=== PATIENT | male | born 1960 | race Caucasian/White ===

== ENCOUNTER → 2016-11-04 | Outpatient (CLI) | payer OTHER ==
[~2016-11-04] VITALS: Ht 195.6 cm; Wt 126.1 kg
[~2016-11-04] MED LIST: ALTA1CAP2 PO; ASPI81TA13 PO; METF500T PO; NS 1,000 ML IV SCH; PROPOFOL 200 MG/20 ML VIAL As Ordered ONE
--- NOTE | 2016-11-04 08:31 | ROOR ---
Patient Name: Tae Juares Procedure Date: 11/04/2016 7:52 AM Date of : 1960 Age: 56 Room: [facility] Gender: Male Note Status: Finalized Procedure: Colonoscopy Indications: Screening for colorectal malignant neoplasm Providers: Srinivas CARTER MD Referring MD: Ramonita Melgar NP Requesting Provider: Medicines: Monitored Anesthesia Care Complications: No immediate complications. Procedure: Pre-Anesthesia Assessment: - The heart rate, respiratory rate, oxygen saturations, blood pressure, adequacy of pulmonary ventilation, and response to care were monitored throughout the procedure. The Colonoscope was introduced through the anus and advanced to the cecum, identified by appendiceal orifice and ileocecal valve. The colonoscopy was performed without difficulty. The patient tolerated the procedure well. The quality of the bowel preparation was good. Findings: The perianal and digital rectal examinations were normal. Three flat and sessile polyps were found in the hepatic flexure, ascending colon and cecum. The polyps were 5 to 8 mm in size. These polyps were removed with a piecemeal technique using a cold snare. Resection and retrieval were complete. A 4 mm polyp was found in the sigmoid colon. The polyp was sessile. The polyp was removed with a cold snare. Resection and retrieval were complete. The exam was otherwise without abnormality on direct and retroflexion views. Impression: - Three 5 to 8 mm polyps at the hepatic flexure, in the ascending colon and in the cecum, removed piecemeal using a cold snare. Resected and retrieved. - One 4 mm polyp in the sigmoid colon, removed with a cold snare. Resected and retrieved. - The examination was otherwise normal on direct and retroflexion views. Recommendation: - Repeat colonoscopy in 3 years for surveillance. Srinivas Carter MD Srinivas CARTER MD 11/04/2016 8:30:37 AM This report has been signed electronically. Number of Addenda: 0 Note Initiated On: 11/04/2016 7:52 AM Estimated Blood Loss: Estimated blood loss: none.
[2016-11-04 08:50] VITALS: BP 133/96
== END ==
LOC: M OPP 06:26
PROVIDERS: ATTEND Internal Medicine Gastroenterology
DX: Z12.11 Encounter for screening for malignant neoplasm of colon (principal); D12.3 Benign neoplasm of transverse colon; D12.2 Benign neoplasm of ascending colon; D12.0 Benign neoplasm of cecum; D12.5 Benign neoplasm of sigmoid colon; E11.9 Type 2 diabetes mellitus without complications; Z79.899 Other long term (current) drug therapy; Z79.82 Long term (current) use of aspirin; Z79.84 Long term (current) use of oral hypoglycemic drugs

== ENCOUNTER → 2016-12-11 | Outpatient (REF) | payer OTHER ==
[~2016-12-11] MED LIST changes: -NS 1,000 ML IV SCH; -PROPOFOL 200 MG/20 ML VIAL As Ordered ONE
[2016-12-11 18:44] LABS: ALBUMIN/GLOBULIN RATIO 1.29 (1.00-1.93); ALKALINE PHOSPHATASE 84 U/L (45-117); ALT/SGPT 58 U/L (12-78); ANION GAP 9 MEQ/L (8-16); AST/SGOT 24 U/L (15-37); BILIRUBIN,TOTAL 0.8 MG/DL (0.2-1.0); BLOOD UREA NITROGEN 14 MG/DL (7-18); CALCIUM LEVEL 8.6 MG/DL (8.5-10.1); CARBON DIOXIDE LEVEL 27 MEQ/L (21-32); CHLORIDE LEVEL 102 MEQ/L (98-107); CHOLESTEROL LEVEL 189 MG/DL (<200); CREATININE FOR GFR 1.01 MG/DL (0.70-1.30); GLOMERULAR FILTRATION RATE > 60.0 (>56); GLUCOSE, FASTING 141 MG/DL (70-105); POTASSIUM SERUM 4.2 MEQ/L (3.5-5.1); SODIUM LEVEL 138 MEQ/L (136-145); TOTAL PROTEIN 7.1 GM/DL (6.4-8.2); TRIGLYCERIDES LEVEL 283 MG/DL (<150)
== END ==
LOC: M SFHCPLAZ 16:16
PROVIDERS: ATTEND Nurse Practitioner Adult Health
DX: E11.9 Type 2 diabetes mellitus without complications (principal); E78.1 Pure hyperglyceridemia; R06.83 Snoring

== ENCOUNTER 2017-01-01 07:11 | Emergency (ER) | payer OTHER ==
[~2017-01-01] VITALS: Ht 198.1 cm; Wt 123.8 kg
[2017-01-01] MEDS ORDERED: RAMI25CA PO (07:20)
[2017-01-01] MEDS ORDERED: GLIM4TAB PO (07:20)
[2017-01-01] MEDS: IBUPROFEN 800 MG TAB PO ONE (08:00)
[2017-01-01] MEDS: NORCO, ANEXSIA 5/325MG TABLET (HYDROcodone/ACETAMINOPHEN) PO ONE (08:01)
[2017-01-01] MEDS: METHOCARBAMOL 500 MG TAB PO ONE (08:01)
[2017-01-01] MEDS ORDERED: NORCOTAB PO ×2 (08:23→08:26)
[2017-01-01] MEDS ORDERED: IBUP600T26 PO (08:23)
[2017-01-01] MEDS ORDERED: ROBA500T PO (08:23)
[2017-01-01 08:49] VITALS: BP 131/82
== END 2017-01-01 08:52 | disposition home or self-care (01) ==
LOC: M ED 07:47
DX: S39.012A Strain of muscle, fascia and tendon of lower back, initial encounter (principal); X58.XXXA Exposure to other specified factors, initial encounter; Y92.89 Other specified places as the place of occurrence of the external cause; Y93.89 Activity, other specified; Y99.8 Other external cause status; I10 Essential (primary) hypertension; E11.9 Type 2 diabetes mellitus without complications; Z79.84 Long term (current) use of oral hypoglycemic drugs; Z79.82 Long term (current) use of aspirin; Z79.899 Other long term (current) drug therapy; E78.00 Pure hypercholesterolemia, unspecified

== ENCOUNTER → 2017-02-13 | Outpatient (CLI) | payer OTHER ==
[~2017-02-13] MED LIST changes: +GLIM4TAB PO; +IBUP600T26 PO; +NORCOTAB PO; +RAMI25CA PO; +ROBA500T PO
--- NOTE | 2017-02-17 09:31 | SLEEPHOME ---
DATE OF PROCEDURE: 02/13/2017 ORDERED BY: Rosita Miller. INTERPRETATION: Diagnostic home sleep testing was performed due to concern for the obstructive sleep apnea syndrome in this patient with a history of excessive somnolence. For testing, a NOX-T3 respiratory monitoring device was used. Continuous record was made of pulse, oxygen saturation, air flow, chest and abdominal strain, and body position. 10 hours and 59 minutes of data were reviewed. Of these, only 4 hours and 4 minutes of time was marked as time in bed. During the interval marked time in bed, there were 38 respiratory events identified of 10 seconds in duration or greater for a respiratory event index of 9.3. The events were primarily obstructive. Baseline pulse rate 75. Pulse rate ranged 61 to 102. Baseline saturation 93%. With respiratory events, saturations fell to 87%. Testing was performed in both the supine and non-supine positions. IMPRESSION: Abnormal home sleep testing with repetitive respiratory events and oxygen desaturations to 87% with a respiratory event index of 9.3 is consistent with the obstructive sleep apnea syndrome. RECOMMENDATION: The patient should be encouraged to undergo formal sleep evaluation and in laboratory pressure titration.
== END ==
LOC: M SLEEP HO 13:05
PROVIDERS: ATTEND Nurse Practitioner Adult Health
DX: G47.30 Sleep apnea, unspecified (principal)

== ENCOUNTER 2017-03-01 14:16 | Emergency (ER) | payer OTHER ==
[~2017-03-01] VITALS: Ht 195.6 cm; Wt 126.1 kg
[2017-03-01] MEDS ORDERED: ACETAMINOPHEN 325 MG TAB PO ONE (14:45)
[2017-03-01] MEDS ORDERED: BACITRACIN OINT 30GM TOP ONE (15:00)
[2017-03-01 15:03] VITALS: BP 143/95
[2017-03-01] MEDS ORDERED: TYLE325C PO (15:09)
--- NOTE | 2017-03-01 15:09 | REP ---
LEFT TIBIA/FIBULA, FOUR VIEWS: HISTORY: Injury. COMPARISON: 04/05/2016 There is no acute fracture or dislocation. There is minimal narrowing of the knee joint space. IMPRESSION: There is no acute fracture or dislocation. Signed by Felton Valentin MD 03/01/2017 04:03 P
--- NOTE | 2017-03-01 15:11 | REP ---
LEFT FINGERS, FOUR VIEWS: HISTORY: Trauma. There is no acute fracture or dislocation. A small ossified density is present anterior to the distal interphalangeal joint space of the 4th digit. This represents ligamentous or tendon calcification or possibly an old avulsion fracture fragment. A subchondral cyst is present in the base of the 4th distal phalange. IMPRESSION: There is no acute fracture or dislocation. Signed by Felton Valentin MD 03/01/2017 04:00 P
--- NOTE | 2017-03-01 16:43 | ECGEPIP ---
Stationary ECG Study [facility] Test Date: 2017-03-01 Pat Name: RIVAS RANDLE Department: Room: - Gender: M Cmm Programmer: LUCIA : 1960 Requested By: CLARITZA Lemus PA-C Order Number: [id number] Reading MD: Christina Garay Measurements Intervals [place] Rate: 105 P: 37 DC: 169 QRS: 21 QRSD: 95 T: 3 QT: 319 QTc: 422 Interpretive Statements SINUS TACHYCARDIA ABNORMAL RHYTHM ECG SIMILAR 11/05/15 Electronically Signed On 03-01-2017 16:42:54 EDT by Christina Garay
== END 2017-03-01 15:25 | disposition home or self-care (01) ==
LOC: M ED 14:47
DX: S62.601A Fracture of unspecified phalanx of left index finger, initial encounter for closed fracture (principal); S80.12XA Contusion of left lower leg, initial encounter; W21.07XA Struck by softball, initial encounter; Y92.9 Unspecified place or not applicable; Y93.64 Activity, baseball; Y99.9 Unspecified external cause status; E11.9 Type 2 diabetes mellitus without complications; I10 Essential (primary) hypertension; R00.0 Tachycardia, unspecified; R94.31 Abnormal electrocardiogram [ECG] [EKG]; Z79.82 Long term (current) use of aspirin; Z79.84 Long term (current) use of oral hypoglycemic drugs; Z79.899 Other long term (current) drug therapy

== ENCOUNTER 2017-08-13 18:22 | Emergency (ER) | payer OTHER ==
[~2017-08-13] VITALS: Ht 195.6 cm; Wt 124.5 kg
[~2017-08-13 18:22] MED LIST changes: -ASPI81TA13 PO; +ASPI81TA24 PO; +IBUP-1022 PO; -IBUP600T26 PO; -METF500T PO; +METF500T13 PO; +TYLE325C PO
[2017-08-13] MEDS ORDERED: METF10004 PO (18:31)
[2017-08-13] MEDS ORDERED: CEFD1CAP8 PO (22:12)
[2017-08-13] MEDS ORDERED: CEFDINIR 300 MG CAP (OMNICEF) PO ONE (22:15)
[2017-08-13 22:33] VITALS: BP 127/82
== END 2017-08-13 22:49 | disposition home or self-care (01) ==
LOC: M ED 18:22
DX: J20.9 Acute bronchitis, unspecified (principal); J02.9 Acute pharyngitis, unspecified; E11.9 Type 2 diabetes mellitus without complications; I10 Essential (primary) hypertension; Z79.82 Long term (current) use of aspirin; Z79.84 Long term (current) use of oral hypoglycemic drugs; Z79.899 Other long term (current) drug therapy

== ENCOUNTER → 2018-03-22 | Outpatient (CLI) | payer OTHER | LOC: M SLEEP HO 15:25 | DX: G47.33 Obstructive sleep apnea (adult) (pediatric) (principal) | CPT/HCPCS: G0399 ==

== ENCOUNTER → 2018-06-22 | Outpatient (REF) | payer OTHER ==
[2018-06-22 12:17] LABS: HEMATOCRIT 45.4 % (42.0-52.0); HEMOGLOBIN 15.8 g/dl (13.5-17.5); MEAN CORPUSCULAR HGB CONC 34.8 g/dl (32.0-36.5); MEAN CORPUSCULAR VOLUME 86.1 fl (80.0-96.0); PLATELET COUNT, AUTOMATED 257 10^3/uL (150-450); RED BLOOD COUNT 5.27 10^6/uL (4.30-6.10); RED CELL DISTRIBUTION WIDTH 11.9 % (11.5-14.5); WHITE BLOOD COUNT 8.3 10^3/uL (4.0-10.0)
[2018-06-22 13:32] LABS: ALBUMIN/GLOBULIN RATIO 1.38 (1.00-1.93); ALKALINE PHOSPHATASE 102 U/L (45-117); ALT/SGPT 53 U/L (12-78); ANION GAP 10 MEQ/L (8-16); AST/SGOT 18 U/L (7-37); BILIRUBIN,TOTAL 0.5 MG/DL (0.2-1.0); BLOOD UREA NITROGEN 14 MG/DL (7-18); CALCIUM LEVEL 9.4 MG/DL (8.5-10.1); CARBON DIOXIDE LEVEL 28 MEQ/L (21-32); CHLORIDE LEVEL 101 MEQ/L (98-107); CHOLESTEROL LEVEL 144 MG/DL (<200); CHOLESTEROL RISK RATIO 5.333 (<5); CREATININE FOR GFR 1.07 MG/DL (0.70-1.30); GLOMERULAR FILTRATION RATE > 60.0 (>56); GLUCOSE, FASTING 263 MG/DL (70-100); HDL CHOLESTEROL 27 MG/DL (>40); LDL CHOLESTEROL 54 MG/DL (<100); NON-HDL-C 117 MG/DL; POTASSIUM SERUM 4.6 MEQ/L (3.5-5.1); SODIUM LEVEL 139 MEQ/L (136-145); TOTAL PROTEIN 6.9 GM/DL (6.4-8.2); TRIGLYCERIDES LEVEL 314 MG/DL (<150)
[2018-06-22 13:52] LABS: MALB URINE SIEMENS 8.4 MG/L
[2018-06-22 13:57] LABS: MAU/CREAT RATIO 8.6 MCG/MG (0.0-30.0)
[2018-06-22 16:03] LABS: ESTIMATED AVERAGE GLUCOSE 229 MG/DL (60-110); HEMOGLOBIN A1c 9.6 %
== END ==
LOC: M SFHCPLAZ 08:51
DX: E11.9 Type 2 diabetes mellitus without complications (principal); E78.1 Pure hyperglyceridemia; R53.83 Other fatigue

== ENCOUNTER → 2018-11-10 | Outpatient (REF) | payer OTHER ==
[~2018-11-10] MED LIST changes: +CEFD1CAP8 PO; +METF10004 PO; +RAMI1CAP22 PO; -RAMI25CA PO
[2018-11-10 18:22] LABS: HEMATOCRIT 47.4 % (42.0-52.0); HEMOGLOBIN 16.1 g/dl (13.5-17.5); MEAN CORPUSCULAR VOLUME 88.4 fl (80.0-96.0); PLATELET COUNT, AUTOMATED 238 10^3/uL (150-450); RED BLOOD COUNT 5.36 10^6/uL (4.30-6.10); WHITE BLOOD COUNT 9.8 10^3/uL (4.0-10.0)
[2018-11-10 18:33] LABS: ALBUMIN 3.9 GM/DL (3.2-5.2); ALT/SGPT 45 U/L (12-78); BILIRUBIN,TOTAL 0.4 MG/DL (0.2-1.0); BLOOD UREA NITROGEN 14 MG/DL (7-18); CALCIUM LEVEL 8.8 MG/DL (8.5-10.1); CARBON DIOXIDE LEVEL 29 MEQ/L (21-32); CHLORIDE LEVEL 104 MEQ/L (98-107); CHOLESTEROL LEVEL 132 MG/DL (<200); CREATININE FOR GFR 1.15 MG/DL (0.70-1.30); GLOMERULAR FILTRATION RATE > 60.0 (>56); GLUCOSE, FASTING 145 MG/DL (70-100); HDL CHOLESTEROL 25 MG/DL (>40); LDL CHOLESTEROL 38 MG/DL (<100); NON-HDL-C 107 MG/DL; POTASSIUM SERUM 4.2 MEQ/L (3.5-5.1); SODIUM LEVEL 140 MEQ/L (136-145); TOTAL PROTEIN 6.8 GM/DL (6.4-8.2); TRIGLYCERIDES LEVEL 344 MG/DL (<150)
[2018-11-10 18:53] LABS: CREATININE, URINE 68.1 MG/DL; MALB URINE SIEMENS 6.9 MG/L; MAU/CREAT RATIO 10.1 MCG/MG (0.0-30.0)
[2018-11-10 20:09] LABS: HEMOGLOBIN A1c 9.2 %
== END ==
LOC: M SFHCPLAZ 14:55
PROVIDERS: ATTEND Nurse Practitioner Adult Health
DX: E78.1 Pure hyperglyceridemia (principal); R53.83 Other fatigue; E11.9 Type 2 diabetes mellitus without complications

== ENCOUNTER → 2019-02-10 | Outpatient (REF) | payer OTHER ==
[~2019-02-10] MED LIST changes: +HYDR-3715 PO; -NORCOTAB PO
[2019-02-10 17:41] LABS: ALBUMIN 3.9 GM/DL (3.2-5.2); ALT/SGPT 34 U/L (12-78); BILIRUBIN,TOTAL 0.5 MG/DL (0.2-1.0); BLOOD UREA NITROGEN 16 MG/DL (7-18); CALCIUM LEVEL 9.3 MG/DL (8.5-10.1); CARBON DIOXIDE LEVEL 27 MEQ/L (21-32); CHLORIDE LEVEL 103 MEQ/L (98-107); CREATININE FOR GFR 1.22 MG/DL (0.70-1.30); GLOMERULAR FILTRATION RATE > 60.0 (>56); GLUCOSE, FASTING 299 MG/DL (70-100); POTASSIUM SERUM 4.3 MEQ/L (3.5-5.1); SODIUM LEVEL 136 MEQ/L (136-145); TOTAL PROTEIN 6.8 GM/DL (6.4-8.2)
[2019-02-10 19:17] LABS: HEMOGLOBIN A1c 9.1 %
== END ==
LOC: M SFHCPLAZ 15:51
PROVIDERS: ATTEND Nurse Practitioner Adult Health
DX: R53.83 Other fatigue (principal); E11.9 Type 2 diabetes mellitus without complications

== ENCOUNTER → 2019-09-08 | Outpatient (CLI) | payer OTHER ==
[~2019-09-08] MED LIST changes: -GLIM4TAB PO; +GLIM4TAB3 PO
[2019-09-08 15:13] LABS: ALT/SGPT 56 U/L (12-78); BILIRUBIN,TOTAL 0.7 MG/DL (0.2-1.0); BLOOD UREA NITROGEN 14 MG/DL (7-18); CALCIUM LEVEL 9.4 MG/DL (8.8-10.2); CARBON DIOXIDE LEVEL 27 MEQ/L (21-32); CHLORIDE LEVEL 105 MEQ/L (98-107); CHOLESTEROL LEVEL 196 MG/DL (<200); CHOLESTEROL RISK RATIO 6.758 (<5); CREATININE FOR GFR 1.22 MG/DL (0.70-1.30); GLOMERULAR FILTRATION RATE > 60.0 (>49); GLUCOSE, FASTING 108 MG/DL (70-100); HDL CHOLESTEROL 29 MG/DL (>40); LDL CHOLESTEROL 120 MG/DL (<100); NON-HDL-C 167 MG/DL; POTASSIUM SERUM 4.7 MEQ/L (3.5-5.1); SODIUM LEVEL 141 MEQ/L (136-145); TOTAL PROTEIN 7.3 GM/DL (6.4-8.2); TRIGLYCERIDES LEVEL 236 MG/DL (<150)
[2019-09-08 15:20] LABS: HEMOGLOBIN A1c 7.8 %
== END ==
LOC: M WUC 12:09
PROVIDERS: ATTEND Nurse Practitioner Adult Health
DX: E11.9 Type 2 diabetes mellitus without complications (principal); E78.1 Pure hyperglyceridemia

== ENCOUNTER 2019-10-17 09:35 | Day surgery (SDC) | payer OTHER ==
[~2019-10-17] VITALS: Ht 193 cm; Wt 122.7 kg
[~2019-10-17 09:35] MED LIST changes: -GLIM4TAB3 PO; +GLIM4TAB5 PO
[2019-10-17] MEDS ORDERED: NABU-119 PO (09:41)
[2019-10-17] MEDS ORDERED: CLIN300C5 PO (09:41)
[2019-10-17] MEDS ORDERED: JARD1TAB3 PO (09:41)
--- NOTE | 2019-10-17 10:25 | REP ---
Chest x-ray: Two views. History: Abdomen pain. Comparison study: November 06, 2015. Findings: The lungs are well inflated and clear. The pleural angles are sharp. Heart size is normal. Pulmonary vasculature is not increased. No bony abnormality is seen. Impression: No active disease. Electronically Signed by Dennis Dalton MD 10/17/2019 10:17 A
--- NOTE | 2019-10-17 10:50 | REP ---
Abdominal right upper quadrant ultrasound, stat request for right flank pain and right upper quadrant pain: There is no cholelithiasis. There is no gallbladder wall thickening or pericholecystic fluid. There is no intrahepatic or extrahepatic biliary duct dilatation. The common biliary duct measures 5 mm in diameter. No solid or cystic hepatic masses are identified. . The hepatic parenchyma is mildly dense and slightly heterogeneous, possibly hepato steatosis. The pancreas is obscured by bowel gas. There is no right renal calculus or hydronephrosis. There is no solid or cystic right renal mass. The right kidney is normal size measuring 12.1 x 5.7 x 5.3 cm. There is no right upper quadrant free fluid. The study is technically difficult and scanning is predominately performed through intercostal window. Electronically Signed by Gregor Roldan MD 10/17/2019 10:41 A
[2019-10-17 10:51] LABS: BASO # 0.1 10^3/uL (0.0-0.2); BASO % 0.4 % (0.0-1.0); EOS # 0.1 10^3/uL (0.0-0.5); EOS % 0.7 % (0.0-3.0); HEMATOCRIT 48.5 % (42.0-52.0); HEMOGLOBIN 16.6 g/dl (13.5-17.5); LYMPH # 2.3 10^3/uL (1.5-5.0); LYMPH % 16.4 % (24.0-44.0); MEAN CORPUSCULAR HEMOGLOBIN 30.1 pg (27.0-33.0); MEAN CORPUSCULAR HGB CONC 34.2 g/dl (32.0-36.5); MEAN CORPUSCULAR VOLUME 87.9 fl (80.0-96.0); MONO # 1.2 10^3/uL (0.0-0.8); MONO % 8.6 % (0.0-5.0); PLATELET COUNT, AUTOMATED 286 10^3/uL (150-450); RED BLOOD COUNT 5.52 10^6/uL (4.30-6.10); WHITE BLOOD COUNT 13.8 10^3/uL (4.0-10.0)
[2019-10-17] MEDS ORDERED: KETOROLAC 30 MG/ML VIAL (J1885) IV ONE (11:00)
[2019-10-17 11:14] LABS: ALBUMIN 3.9 GM/DL (3.2-5.2); BILIRUBIN,DIRECT 0.4 MG/DL (0.0-0.2); BILIRUBIN,TOTAL 1.4 MG/DL (0.2-1.0); TOTAL PROTEIN 7.3 GM/DL (6.4-8.2)
[2019-10-17] MEDS ORDERED: ISOVUE-370 76% 100ML VIAL (Q9967) As Ordered ONE (11:44)
--- NOTE | 2019-10-17 12:43 | REP ---
CT ABDOMEN AND PELVIS WITH IV BUT WITHOUT ORAL CONTRAST: HISTORY: Right upper quadrant pain. CT CONTRAST DOSE: 100 mL of intravenous Isovue 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 Normal bowel gas pattern. The lung bases are clear on axial CT images. There is mild to moderate diffuse fatty infiltration of the liver. No focal liver mass lesion is seen. Spleen is unremarkable. Normal adrenal glands are seen bilaterally. No abnormality is noted in the pancreas or in the gallbladder. The kidneys enhance symmetrically and are morphologically intact. No hydronephrosis or calculus seen. Normal caliber abdominal aorta. There is an abnormal retrocecal inflamed appendix with periappendiceal fat streaking and a small quantity of periappendiceal fluid. The appendix is dilated to a diameter of 1.7 cm. There is mural thickening in the wall of the appendix. There is no evidence of appendicolith or abscess. No free air is seen. Findings are compatible with acute appendicitis. Small and large intestinal bowel loops are otherwise unremarkable. Urinary bladder gusman appear somewhat thickened. Prostate seminal vesicles are unremarkable. No abdominal wall defect is seen. IMPRESSION: Acute appendicitis, retrocecal appendix. Periappendiceal inflammation, small quantity of pericolic gutter fluid. No abscess or free air seen. Electronically Signed by Dennis Dalton MD 10/17/2019 07:46 P
[2019-10-17] MEDS ORDERED: NS 1,000 ML IV ONE (12:45)
[2019-10-17] MEDS ORDERED: PIPERACILLIN/TAZOBACTAM SOD 3.375 GM in D5W MINI-BAG PLUS 50 ML IV ONE (12:45)
[2019-10-17] MEDS ORDERED: METF-791 PO (12:58)
[2019-10-17] MEDS ORDERED: LORA-674 PO (12:58)
[2019-10-17] MEDS ORDERED: BUPIVACAINE/EPIN 0.25% 30 ML VIAL As Ordered ONE (16:27)
[2019-10-17] MEDS ORDERED: ROCURONIUM BROMIDE 50 MG/5 ML VIAL As Ordered ONE (17:13)
[2019-10-17] MEDS ORDERED: fentaNYL 250 MCG/5 ML INJECTION (J3010) As Ordered ONE (17:13)
[2019-10-17] MEDS ORDERED: MIDAZOLAM INJ 2 MG/2 ML VIAL (J2250) As Ordered ONE (17:13)
[2019-10-17] MEDS ORDERED: LIDOCAINE 2% INJ 100 MG/5 ML SDV (FOR ANES.) As Ordered ONE (17:13)
[2019-10-17] MEDS ORDERED: propofoL 200 MG/20 ML VIAL As Ordered ONE ×2 (17:13→17:23)
[2019-10-17] MEDS ORDERED: dexameTHASONE 4 MG/ML 1ML VIAL (J1100) As Ordered ONE (17:13)
[2019-10-17] MEDS ORDERED: ESMOLOL INJ 100MG/10ML VIAL As Ordered ONE (17:27)
[2019-10-17] MEDS ORDERED: ONDANSETRON 4MG/2ML VIAL (J2405) As Ordered ONE (17:29)
[2019-10-17] MEDS ORDERED: ACETAMINOPHEN 1000MG 100ML IV BTL (OFIRMEV) (J0131 PER 10MG) As Ordered ONE (17:34)
[2019-10-17] MEDS ORDERED: SUGAMMADEX SODIUM 500 MG/5 ML VIAL (BRIDION) As Ordered ONE (17:56)
[2019-10-17] MEDS ORDERED: KETOROLAC 60 MG/2 ML VIAL (J1885) As Ordered ONE (17:58)
[2019-10-17] MEDS ORDERED: KETOROLAC 30 MG/ML VIAL (J1885) IV PRN ×2 (18:00→18:30)
[2019-10-17] MEDS: NS 1,000 ML IV SCH (18:19)
[2019-10-17] MEDS ORDERED: GLUCOSE 4 GM CHEW TABLET PO PRN (18:30)
[2019-10-17] MEDS ORDERED: NORCO, ANEXSIA 5/325MG TABLET (HYDROcodone/ACETAMINOPHEN) PO PRN ×2 (18:30)
[2019-10-17] MEDS ORDERED: GLUCAGON FOR INJ 1 MG VIAL (J1610) SC PRN (18:30)
[2019-10-17] MEDS ORDERED: MORPHINE 2 MG/ML 1ML VIAL (J2270) IV PRN ×2 (18:30)
[2019-10-17] MEDS ORDERED: DEXTROSE 50% 50 ML SYRINGE IV PRN (18:30)
[2019-10-17] MEDS ORDERED: oxyCODONE 5MG TAB As Ordered ONE (18:47)
[2019-10-17] MEDS ORDERED: ONDANSETRON 4MG/2ML VIAL (J2405) IV PRN (19:15)
[2019-10-17] MEDS ORDERED: oxyCODONE 5MG TAB PO PRN (19:15)
[2019-10-17] MEDS ORDERED: LR 1,000 ML IV SCH (19:15)
[2019-10-17] MEDS ORDERED: fentaNYL 100 MCG/2 ML INJECTION (J3010) IV PRN (19:15)
[2019-10-17 19:30] VITALS: BP 119/75
[2019-10-17 20:00] VITALS: BP 116/68
[2019-10-17] MEDS: PIPERACILLIN/TAZOBACTAM SOD 3.375 GM in D5W MINI-BAG PLUS 50 ML IV SCH (20:28)
[2019-10-17 20:30] VITALS: BP 112/62
[2019-10-17] MEDS ORDERED: HumaLOG INSULIN (NovoLOG) PER UNIT SC SCH (21:00)
[2019-10-17 21:30] VITALS: BP 100/61
[2019-10-17 22:30] VITALS: BP 104/63
[2019-10-18] VITALS: BP 118/63
[2019-10-18] MEDS: PIPERACILLIN/TAZOBACTAM SOD 3.375 GM in D5W MINI-BAG PLUS 50 ML IV SCH ×2 (01:56→06:50)
[2019-10-18 04:00] VITALS: BP 138/84
[2019-10-18] MEDS: NS 1,000 ML IV SCH (04:00)
[2019-10-18] MEDS ORDERED: HumaLOG INSULIN (NovoLOG) PER UNIT SC SCH (07:30)
[2019-10-18 08:00] VITALS: BP 129/71
[2019-10-18] MEDS ORDERED: HYDR-3715 PO (10:25)
--- NOTE | 2019-10-18 10:46 | RO ---
DATE OF OPERATION: 10/17/2019 PREOPERATIVE DIAGNOSIS: Acute appendicitis. POSTOPERATIVE DIAGNOSIS: Acute appendicitis. PROCEDURE: Laparoscopic appendectomy. SURGEON: Holden Linton MD HEADING AND PRIMING OPERATOR: ANESTHESIA: General endotracheal anesthesia. ESTIMATED BLOOD LOSS: Minimal. FLUIDS: Crystalloid. BRIEF PROCEDURE SUMMARY: The patient was brought to the operating room and was given general anesthesia. After adequate anesthesia and preoperative antibiotics were given, the patient was prepped and draped the usual sterile fashion. Next, a supraumbilical incision was made with skin knife. Blunt dissection was carried down to fascia. Fascia was entered with a Veress needle and after insufflation to 50 mm of pressure a dilating 12 mm trocar was placed. In the suprapubic left lower quadrant 5 mm trocars were placed and then the appendix was seen, identified on the right lateral abdominal wall somewhat of a retrocecal appendix and definitely adherent to the lateral aspect of the cecal wall. In any case, after mobilization of the peritoneum lateral to the cecum to mobilize this portion of the cecum and the appendix with Harmonic scalpel the mesoappendix was taken down with Harmonic scalpel all the way to the base of the appendix down to the cecal wall. A BRETT stapler was used to transect the appendix at its base and there was some oozing right where the staple line was abutting the mesoappendix and this was controlled with the Harmonic scalpel, but otherwise the base was clean and dry. The abdomen was copiously irrigated until clear and the appendix was taken out through the umbilicus in an Endo Catch bag. All trocars were removed under direct visualization. #0 Vicryl was used close the fascia at the umbilicus and all incisions were closed with #4-0 Vicryl. Steri-Strips and dry sterile dressing was applied. The patient was awakened, extubated, brought to the recovery room awake, alert and hemodynamically stable. Sponge and needle counts correct times two.
== END 2019-10-18 11:05 | disposition home or self-care (01) ==
LOC: M ED 09:35 → M SDC 14:24 → ENRESERVDT 15:15 → ENRESERVTM 15:15 → M PED 15:25 → M SDC 10-18 11:05
PROVIDERS: ATTEND Surgery
DX: K35.80 Unspecified acute appendicitis (principal); I10 Essential (primary) hypertension; E11.9 Type 2 diabetes mellitus without complications; E78.5 Hyperlipidemia, unspecified; Z79.899 Other long term (current) drug therapy; Z79.82 Long term (current) use of aspirin; Z79.2 Long term (current) use of antibiotics; Z79.84 Long term (current) use of oral hypoglycemic drugs
CPT/HCPCS: 44970; 71046; 76705; 80047; 80076; 81001; 83690; 85025; 88304; 96365; 96366; 96375; 99284; J0131; J1100; J1885; J2250; J2405; J2543; J3010; Q9967

== ENCOUNTER → 2020-05-12 | Outpatient (REF) | payer OTHER ==
[~2020-05-12] MED LIST changes: +CLIN300C5 PO; +JARD1TAB3 PO; +LORA-674 PO; +METF-838 PO; +NABU-53 PO
[2020-07-01 08:12] LABS: INR 0.93; PARTIAL THROMBOPLASTIN TIME 25.8 SECONDS (24.2-38.5); PLATELET COUNT, AUTOMATED 243 10^3/uL (150-450); PROTHROMBIN TIME 12.7 SECONDS (12.5-14.3)
[2020-07-01 08:13] LABS: COLLAGEN ADP 71 SECONDS (56-103); COLLAGEN EPINEPHRINE 172 SECONDS (74-162)
== END ==
LOC: M LABWUC 13:49
PROVIDERS: ATTEND Physician Assistant
DX: M47.22 Other spondylosis with radiculopathy, cervical region (principal)

== ENCOUNTER → 2020-05-26 | Outpatient (CLI) | payer OTHER | LOC: M LABSMTC 09:33 | PROVIDERS: ATTEND Physical Medicine & Rehabilitation | DX: Z20.828 Contact with and (suspected) exposure to other viral communicable diseases (principal) | CPT/HCPCS: C9803; U0003 ==

== ENCOUNTER → 2020-07-04 | Outpatient (CLI) | payer OTHER | LOC: M LABSMTC 13:40 | PROVIDERS: ATTEND Physical Medicine & Rehabilitation | DX: Z01.812 Encounter for preprocedural laboratory examination (principal); Z20.828 Contact with and (suspected) exposure to other viral communicable diseases ==

== ENCOUNTER → 2020-07-04 | Outpatient (CLI) | payer OTHER ==
[2020-07-04 16:06] LABS: HEMOGLOBIN A1c 8.5 %
[2020-07-04 16:16] LABS: ALBUMIN 4.4 GM/DL (3.2-5.2); ALT/SGPT 46 U/L (12-78); BILIRUBIN,TOTAL 0.7 MG/DL (0.2-1.0); BLOOD UREA NITROGEN 15 MG/DL (7-18); CALCIUM LEVEL 9.7 MG/DL (8.8-10.2); CARBON DIOXIDE LEVEL 28 MEQ/L (21-32); CHLORIDE LEVEL 104 MEQ/L (98-107); CHOLESTEROL LEVEL 218 MG/DL (<200); CHOLESTEROL RISK RATIO 7.266 (<5); CREATININE FOR GFR 1.29 MG/DL (0.70-1.30); GLOMERULAR FILTRATION RATE > 60.0 (>49); GLUCOSE, FASTING 130 MG/DL (70-100); HDL CHOLESTEROL 30 MG/DL (>40); LDL CHOLESTEROL 131 MG/DL (<100); NON-HDL-C 188 MG/DL; POTASSIUM SERUM 5.1 MEQ/L (3.5-5.1); SODIUM LEVEL 137 MEQ/L (136-145); TOTAL PROTEIN 7.7 GM/DL (6.4-8.2); TRIGLYCERIDES LEVEL 286 MG/DL (<150)
[2020-07-04 17:27] LABS: CREATININE, URINE 56.7 MG/DL; MALB URINE SIEMENS 5.6 MG/L; MAU/CREAT RATIO 9.8 MCG/MG (0.0-30.0)
== END ==
LOC: M PLALAB 13:22
PROVIDERS: ATTEND Nurse Practitioner Adult Health
DX: E11.65 Type 2 diabetes mellitus with hyperglycemia (principal); E78.2 Mixed hyperlipidemia

== ENCOUNTER → 2020-07-09 | Outpatient (CLI) | payer OTHER ==
[2020-07-09 07:17] LABS: COLLAGEN EPINEPHRINE 76 SECONDS (74-162)
== END ==
LOC: M LAB 06:39
PROVIDERS: ATTEND Physical Medicine & Rehabilitation
DX: Z01.812 Encounter for preprocedural laboratory examination (principal)

== ENCOUNTER → 2020-12-27 | Outpatient (REF) | payer OTHER ==
[~2020-12-27] MED LIST changes: -CLIN300C5 PO; +CLIN300C6 PO
[2020-12-27 12:15] LABS: ALBUMIN 4.2 GM/DL (3.2-5.2); ALT/SGPT 50 U/L (12-78); BILIRUBIN,TOTAL 0.5 MG/DL (0.2-1.0); BLOOD UREA NITROGEN 18 MG/DL (7-18); CALCIUM LEVEL 9.7 MG/DL (8.8-10.2); CARBON DIOXIDE LEVEL 28 MEQ/L (21-32); CHLORIDE LEVEL 103 MEQ/L (98-107); CHOLESTEROL LEVEL 228 MG/DL (<200); CREATININE FOR GFR 1.21 MG/DL (0.70-1.30); GLOMERULAR FILTRATION RATE > 60.0 (>49); GLUCOSE, FASTING 186 MG/DL (70-100); HDL CHOLESTEROL 30 MG/DL (>40); LDL CHOLESTEROL 130 MG/DL (<100); NON-HDL-C 198 MG/DL; POTASSIUM SERUM 4.7 MEQ/L (3.5-5.1); SODIUM LEVEL 136 MEQ/L (136-145); TOTAL PROTEIN 7.5 GM/DL (6.4-8.2); TRIGLYCERIDES LEVEL 342 MG/DL (<150)
[2020-12-27 15:12] LABS: HEMOGLOBIN A1c 8.9 %
== END ==
LOC: M SFHCPLAZ 08:20
PROVIDERS: ATTEND Nurse Practitioner Adult Health
DX: E11.9 Type 2 diabetes mellitus without complications (principal); E78.1 Pure hyperglyceridemia

== ENCOUNTER → 2021-01-19 | Outpatient (CLI) | payer OTHER ==
[~2021-01-19] MED LIST changes: -NABU-53 PO; +NABU-73 PO
--- NOTE | 2021-01-21 20:40 | ECGEPIP ---
[facility] Test Date: 2021-01-19 Pat Name: RIVAS RANDLE Department: Room: - Gender: Male Grappler: harry : 1960 Requested By: Joby Morin Order Number: [id number] Reading MD: Christian Garay Measurements Intervals [place] Rate: 101 P: 16 MD: 154 QRS: 35 QRSD: 92 T: 15 QT: 348 QTc: 451 Interpretive Statements SINUS TACHYCARDIA NO CHANGE COMPARED TO 03/01/2017 Electronically Signed on 01-21-2021 20:40:13 EDT by Christina Garay
== END ==
LOC: M EKG 10:17
PROVIDERS: ATTEND Orthopaedic Surgery
DX: Z01.810 Encounter for preprocedural cardiovascular examination (principal); R00.0 Tachycardia, unspecified

== ENCOUNTER → 2021-05-15 | Outpatient (CLI) | payer OTHER | LOC: M LABSMTC 11:10 | PROVIDERS: ATTEND Anesthesiology | DX: Z01.812 Encounter for preprocedural laboratory examination (principal); Z11.52 Encounter for screening for COVID-19 ==

== ENCOUNTER 2021-05-20 07:17 | Day surgery (SDC) | payer OTHER ==
[~2021-05-20] VITALS: Ht 200.7 cm; Wt 124.7 kg
[~2021-05-20 07:17] MED LIST changes: +NS 1,000 ML IV ONE
[2021-05-20] MEDS ORDERED: LIDOCAINE 2% 100MG/5ML SDV (FOR ANES.) As Ordered ONE (08:19)
[2021-05-20] MEDS ORDERED: propofoL 200 MG/20 ML VIAL As Ordered ONE (08:19)
--- NOTE | 2021-05-20 08:44 | ROOR ---
Patient Name: Tae Juares Procedure Date: 05/20/2021 8:26 AM Date of : 1960 Age: 61 Room: [facility] Gender: Male Note Status: Finalized Procedure: Colonoscopy Indications: High risk colon cancer surveillance: Personal history of colonic polyps Providers: Srinivas Carter MD Referring MD: Ramonita Melgar NP Requesting Provider: Medicines: Monitored Anesthesia Care Complications: No immediate complications. Procedure: Pre-Anesthesia Assessment: - The heart rate, respiratory rate, oxygen saturations, blood pressure, adequacy of pulmonary ventilation, and response to care were monitored throughout the procedure. The colonoscopy was technically difficult and complex due to inadequate bowel prep. The Colonoscope was introduced through the anus with the intention of advancing to the cecum. The scope was advanced to the hepatic flexure before the procedure was aborted. Medications were given. Findings: The perianal and digital rectal examinations were normal. (Colon Prep was POOR, Inadequate Visualisation) Impression: - (Colon Prep was POOR, Inadequate Visualisation) - No specimens collected. Recommendation: - Repeat colonoscopy at the next available appointment because the bowel preparation was suboptimal. Procedure Code(s): --- Professional --- 85988, 53, Colonoscopy, flexible; diagnostic, including collection of specimen(s) by brushing or washing, when performed (separate procedure) Diagnosis Code(s): --- Professional --- Z86.010, Personal history of colonic polyps CPT copyright 2019 [employer]. All rights reserved. The codes documented in this report are preliminary and upon venture capital analyst review may be revised to meet current compliance requirements. Srinivas Carter MD Srinivas Carter MD 05/20/2021 8:44:02 AM Electronically signed by Srinivas Carter MD Number of Addenda: 0 Note Initiated On: 05/20/2021 8:26 AM Estimated Blood Loss: Estimated blood loss: none.
[2021-05-20 09:04] VITALS: BP 139/89
== END 2021-05-20 09:12 | disposition home or self-care (01) ==
LOC: M OPP 07:17
PROVIDERS: ATTEND Internal Medicine Gastroenterology
DX: Z12.11 Encounter for screening for malignant neoplasm of colon (principal); Z86.010 Personal history of colon polyps; Z79.82 Long term (current) use of aspirin; Z79.84 Long term (current) use of oral hypoglycemic drugs; Z79.899 Other long term (current) drug therapy

== ENCOUNTER → 2021-06-01 | Outpatient (CLI) | payer OTHER ==
[~2021-06-01] MED LIST changes: -NS 1,000 ML IV ONE
[2021-06-01 10:58] LABS: HEMOGLOBIN A1c 9.3 %
[2021-06-01 11:12] LABS: CREATININE, URINE 83.8 MG/DL; MALB URINE SIEMENS 7.7 MG/L; MAU/CREAT RATIO 9.1 MCG/MG (0.0-30.0)
[2021-06-01 11:14] LABS: ALBUMIN 3.6 GM/DL (3.2-5.2); ALT/SGPT 38 U/L (12-78); BILIRUBIN,TOTAL 0.4 MG/DL (0.2-1.0); BLOOD UREA NITROGEN 15 MG/DL (7-18); CALCIUM LEVEL 8.6 MG/DL (8.8-10.2); CARBON DIOXIDE LEVEL 22 MEQ/L (21-32); CHLORIDE LEVEL 107 MEQ/L (98-107); CHOLESTEROL LEVEL 153 MG/DL (<200); CHOLESTEROL RISK RATIO 5.884 (<5); GLOMERULAR FILTRATION RATE > 60.0 (>49); GLUCOSE, FASTING 252 MG/DL (70-100); HDL CHOLESTEROL 26 MG/DL (>40); LDL CHOLESTEROL 75 MG/DL (<100); NON-HDL-C 127 MG/DL; POTASSIUM SERUM 4.4 MEQ/L (3.5-5.1); SODIUM LEVEL 135 MEQ/L (136-145); TOTAL PROTEIN 6.8 GM/DL (6.4-8.2); TRIGLYCERIDES LEVEL 262 MG/DL (<150)
== END ==
LOC: M LAB 10:14
PROVIDERS: ATTEND Nurse Practitioner Adult Health
DX: E11.9 Type 2 diabetes mellitus without complications (principal); R53.83 Other fatigue; Z12.5 Encounter for screening for malignant neoplasm of prostate; E78.1 Pure hyperglyceridemia

== ENCOUNTER → 2021-10-24 | Outpatient (CLI) | payer OTHER ==
[~2021-10-24] MED LIST changes: -CEFD1CAP8 PO; +CEFD300C41 PO; +CLIN-250 PO; -CLIN300C6 PO; +GABA-282 PO; +TRUL0.5I SQ
== END ==
LOC: M LABSMTC 10:35
PROVIDERS: ATTEND Anesthesiology
DX: Z01.818 Encounter for other preprocedural examination (principal); Z11.52 Encounter for screening for COVID-19

== ENCOUNTER 2021-10-29 07:23 | Day surgery (SDC) | payer OTHER ==
[~2021-10-29] VITALS: Ht 200.7 cm; Wt 126.6 kg
[~2021-10-29 07:23] MED LIST changes: +NS 1,000 ML IV ONE
[2021-10-29] MEDS ORDERED: propofoL 200 MG/20 ML VIAL As Ordered ONE ×3 (08:05→09:28)
[2021-10-29] MEDS ORDERED: LIDOCAINE 2% 100MG/5ML SDV (FOR ANES.) As Ordered ONE (08:05)
[2021-10-29 10:12] VITALS: BP 137/79
== END 2021-10-29 10:13 | disposition home or self-care (01) ==
LOC: M OPP 07:23
PROVIDERS: ATTEND Internal Medicine Gastroenterology
DX: Z12.11 Encounter for screening for malignant neoplasm of colon (principal); Z86.010 Personal history of colon polyps; D12.0 Benign neoplasm of cecum; D12.4 Benign neoplasm of descending colon; D12.5 Benign neoplasm of sigmoid colon; K57.30 Diverticulosis of large intestine without perforation or abscess without bleeding; K64.8 Other hemorrhoids; Z79.82 Long term (current) use of aspirin; Z79.84 Long term (current) use of oral hypoglycemic drugs; Z79.899 Other long term (current) drug therapy

== ENCOUNTER → 2022-03-07 | Outpatient (CLI) | payer OTHER ==
[~2022-03-07] MED LIST changes: -NS 1,000 ML IV ONE
[2022-03-07 15:39] LABS: ALBUMIN 4.2 GM/DL (3.2-5.2); BILIRUBIN,TOTAL 0.7 MG/DL (0.2-1.0); CALCIUM LEVEL 9.3 MG/DL (8.8-10.2); CHOLESTEROL RISK RATIO 4.5 (<5); CREATININE FOR GFR 1.37 MG/DL (0.70-1.30); GLOMERULAR FILTRATION RATE 56.1 (>49); POTASSIUM SERUM 4.7 MEQ/L (3.5-5.1); THYROID STIMULATING HORMONE 2.02 uIU/ML (0.358-3.740); TOTAL PROTEIN 7.7 GM/DL (6.4-8.2)
[2022-03-07 15:43] LABS: MALB URINE SIEMENS 16.5 MG/L; MAU/CREAT RATIO 15.2 MCG/MG (0.0-30.0)
[2022-03-07 16:13] LABS: HEMOGLOBIN A1c 7.2 %
== END ==
LOC: M PLALAB 10:10
PROVIDERS: ATTEND Nurse Practitioner Adult Health
DX: R53.83 Other fatigue (principal); E11.9 Type 2 diabetes mellitus without complications; E78.1 Pure hyperglyceridemia

== ENCOUNTER → 2022-06-18 | Outpatient (CLI) | payer OTHER ==
[~2022-06-18] MED LIST changes: +ATOR40TA75 PO
== END ==
LOC: M LABSMTC 10:53
PROVIDERS: ATTEND Anesthesiology
DX: Z01.812 Encounter for preprocedural laboratory examination (principal); Z11.52 Encounter for screening for COVID-19

== ENCOUNTER → 2022-07-29 | Outpatient (CLI) | payer OTHER ==
[2022-07-29 17:49] LABS: ALT/SGPT 42 U/L (12-78); BILIRUBIN,TOTAL 0.6 MG/DL (0.2-1.0); BLOOD UREA NITROGEN 14 MG/DL (7-18); CALCIUM LEVEL 9.3 MG/DL (8.8-10.2); CARBON DIOXIDE LEVEL 25 MEQ/L (21-32); CHLORIDE LEVEL 104 MEQ/L (98-107); CHOLESTEROL LEVEL 135 MG/DL (<200); CHOLESTEROL RISK RATIO 4.655 (<5); GLOMERULAR FILTRATION RATE > 60.0 (>49); GLUCOSE, FASTING 152 MG/DL (70-100); HDL CHOLESTEROL 29 MG/DL (>40); LDL CHOLESTEROL 64 MG/DL (<100); NON-HDL-C 106 MG/DL; POTASSIUM SERUM 4.2 MEQ/L (3.5-5.1); SODIUM LEVEL 137 MEQ/L (136-145); TOTAL PROTEIN 7.3 GM/DL (6.4-8.2); TRIGLYCERIDES LEVEL 211 MG/DL (<150)
[2022-07-29 17:49] LABS: MALB URINE SIEMENS 22.6 MG/L; MAU/CREAT RATIO 20.5 MCG/MG (0.0-30.0)
[2022-07-29 19:09] LABS: HEMOGLOBIN A1c 8.7 %
== END ==
LOC: M LAB 15:13
PROVIDERS: ATTEND Nurse Practitioner Adult Health
DX: E11.65 Type 2 diabetes mellitus with hyperglycemia (principal)

== ENCOUNTER → 2022-10-13 | Outpatient (CLI) | payer OTHER | LOC: M LABSMTC 09:43 | PROVIDERS: ATTEND Anesthesiology | DX: Z01.812 Encounter for preprocedural laboratory examination (principal); Z11.52 Encounter for screening for COVID-19 ==

== ENCOUNTER 2022-10-16 07:06 | Day surgery (SDC) | payer OTHER ==
[~2022-10-16] VITALS: Ht 200.7 cm; Wt 125.6 kg
[~2022-10-16 07:06] MED LIST changes: +NS 1,000 ML IV ONE
[2022-10-16] MEDS ORDERED: GLUCAGON INJ 1MG VIAL As Ordered ONE (07:50)
[2022-10-16] MEDS ORDERED: propofoL 200 MG/20 ML VIAL As Ordered ONE (07:50)
[2022-10-16 08:26] VITALS: BP 120/74
== END 2022-10-16 08:45 | disposition home or self-care (01) ==
LOC: M OPP 07:06
PROVIDERS: ATTEND Internal Medicine Gastroenterology
DX: Z12.11 Encounter for screening for malignant neoplasm of colon (principal); Z86.010 Personal history of colon polyps; D12.3 Benign neoplasm of transverse colon; D12.5 Benign neoplasm of sigmoid colon; K63.5 Polyp of colon; Z79.02 Long term (current) use of antithrombotics/antiplatelets; Z79.82 Long term (current) use of aspirin; Z79.84 Long term (current) use of oral hypoglycemic drugs; Z79.891 Long term (current) use of opiate analgesic; Z79.899 Other long term (current) drug therapy; E11.9 Type 2 diabetes mellitus without complications; G47.33 Obstructive sleep apnea (adult) (pediatric); Z99.89 Dependence on other enabling machines and devices; E78.00 Pure hypercholesterolemia, unspecified
CPT/HCPCS: 45385; 88305; J1610

== ENCOUNTER → 2023-02-17 | Outpatient (CLI) | payer OTHER ==
[~2023-02-17] MED LIST changes: -NS 1,000 ML IV ONE
[2023-02-17 09:08] LABS: ALBUMIN 3.8 G/DL (3.2-5.2); ALKALINE PHOSPHATASE 95 U/L (46-116); ALT/SGPT 40 U/L (7.0-40); AST/SGOT 21 U/L (<34); BILIRUBIN,TOTAL 0.5 MG/DL (0.3-1.2); BLOOD UREA NITROGEN 19 MG/DL (9-23); CALCIUM LEVEL 9.1 MG/DL (8.3-10.6); CARBON DIOXIDE LEVEL 26 MMOL/L (20-31); CHLORIDE LEVEL 104 MMOL/L (98-107); CREATININE FOR GFR 1.15 MG/DL (0.70-1.30); GLOMERULAR FILTRATION RATE > 60.0 (>49); GLUCOSE, FASTING 156 MG/DL (74-106); POTASSIUM SERUM 4.4 MMOL/L (3.5-5.1); SODIUM LEVEL 133 MMOL/L (136-145); TOTAL PROTEIN 6.6 G/DL (5.7-8.2)
== END ==
LOC: M LAB 07:50
PROVIDERS: ATTEND Nurse Practitioner Adult Health
DX: E11.65 Type 2 diabetes mellitus with hyperglycemia (principal)

== ENCOUNTER 2023-03-20 09:41 | Emergency (ER) | payer OTHER ==
[~2023-03-20] VITALS: Ht 200.7 cm; Wt 124.9 kg
[2023-03-20] MEDS ORDERED: BOOSTRIX VACCINE (TETANUS/DIPHTH/ACEL. PERTUSSIS) 0.5ML SYR IM ONE (12:05)
[2023-03-20] MEDS ORDERED: ACETAMINOPHEN 500 MG TAB PO ONE (12:05)
[2023-03-20 13:20] VITALS: BP 146/87; TEMP 97.4; O2SAT 99
== END 2023-03-20 13:26 | disposition home or self-care (01) ==
LOC: M ED 09:41
DX: S50.312A Abrasion of left elbow, initial encounter (principal); W01.0XXA Fall on same level from slipping, tripping and stumbling without subsequent striking against object, initial encounter; I10 Essential (primary) hypertension; E11.9 Type 2 diabetes mellitus without complications; Z79.4 Long term (current) use of insulin; Z79.1 Long term (current) use of non-steroidal anti-inflammatories (NSAID); Z79.899 Other long term (current) drug therapy; Z23 Encounter for immunization

== ENCOUNTER → 2023-08-11 | Outpatient (CLI) | payer OTHER ==
[~2023-08-11] MED LIST changes: -CEFD300C41 PO; +CEFD300C42 PO; +LORA-1041 PO; -LORA-674 PO
[2023-08-11 13:59] LABS: CREATININE, URINE 92.5 MG/DL
[2023-08-11 14:00] LABS: MAU/CREAT RATIO 7.5 MCG/MG (0.0-30.0)
[2023-08-11 14:04] LABS: ALBUMIN 3.9 G/DL (3.2-5.2); ALKALINE PHOSPHATASE 85 U/L (46-116); ALT/SGPT 36 U/L (7.0-40); AST/SGOT 18 U/L (<34); BILIRUBIN,TOTAL 0.7 MG/DL (0.3-1.2); BLOOD UREA NITROGEN 15 MG/DL (9-23); CALCIUM LEVEL 9.2 MG/DL (8.3-10.6); CARBON DIOXIDE LEVEL 27 MMOL/L (20-31); CHLORIDE LEVEL 104 MMOL/L (98-107); CHOLESTEROL LEVEL 123 MG/DL (<200); CHOLESTEROL RISK RATIO 4.15 (<5); GLOMERULAR FILTRATION RATE > 60.0 (>49); GLUCOSE, FASTING 124 MG/DL (74-106); HDL CHOLESTEROL 29.6 MG/DL (>40); LDL CHOLESTEROL 71.8 MG/DL (<100); NON-HDL-C 93.4 MG/DL; POTASSIUM SERUM 4.8 MMOL/L (3.5-5.1); SODIUM LEVEL 138 MMOL/L (136-145); TOTAL PROTEIN 6.7 G/DL (5.7-8.2); TRIGLYCERIDES LEVEL 108 MG/DL (<150)
[2023-08-11 14:31] LABS: HEMOGLOBIN A1c 7.1 % (4.0-6.0)
== END ==
LOC: M PLALAB 10:07
PROVIDERS: ATTEND Nurse Practitioner Adult Health
DX: E11.65 Type 2 diabetes mellitus with hyperglycemia (principal); E78.1 Pure hyperglyceridemia

== ENCOUNTER 2023-11-21 02:11 | Emergency (ER) | payer OTHER ==
[~2023-11-21] VITALS: Ht 200.7 cm; Wt 119.1 kg
[~2023-11-21 02:11] MED LIST changes: +CEFD1CAP9 PO; -CEFD300C42 PO
[2023-11-21 08:23] VITALS: BP 158/98; TEMP 97.4; O2SAT 100
== END 2023-11-21 08:57 | disposition home or self-care (01) ==
LOC: M ED 02:11
DX: M48.07 Spinal stenosis, lumbosacral region (principal); M48.061 Spinal stenosis, lumbar region without neurogenic claudication; N52.9 Male erectile dysfunction, unspecified; E78.5 Hyperlipidemia, unspecified; E11.9 Type 2 diabetes mellitus without complications; Z79.82 Long term (current) use of aspirin; Z79.02 Long term (current) use of antithrombotics/antiplatelets; Z79.4 Long term (current) use of insulin; Z79.899 Other long term (current) drug therapy

== ENCOUNTER → 2023-12-02 | Outpatient (CLI) | payer OTHER ==
[2023-12-02 17:48] LABS: HEMOGLOBIN A1c 6.7 % (4.0-6.0)
[2023-12-02 17:49] LABS: ALBUMIN 4.1 G/DL (3.2-5.2); ALKALINE PHOSPHATASE 94 U/L (46-116); ALT/SGPT 26 U/L (7.0-40); AST/SGOT 13 U/L (<34); BILIRUBIN,TOTAL 0.8 MG/DL (0.3-1.2); BLOOD UREA NITROGEN 17 MG/DL (9-23); CALCIUM LEVEL 9.2 MG/DL (8.3-10.6); CARBON DIOXIDE LEVEL 29 MMOL/L (20-31); CHLORIDE LEVEL 105 MMOL/L (98-107); CHOLESTEROL LEVEL 158 MG/DL (<200); CREATININE FOR GFR 1.05 MG/DL (0.70-1.30); GLOMERULAR FILTRATION RATE > 60.0 (>49); GLUCOSE, FASTING 154 MG/DL (74-106); HDL CHOLESTEROL 27.7 MG/DL (>40); LDL CHOLESTEROL 95.7 MG/DL (<100); NON-HDL-C 130.3 MG/DL; PSA SCREENING 1.14 NG/ML (< 4.00); SODIUM LEVEL 137 MMOL/L (136-145); TOTAL PROTEIN 6.9 G/DL (5.7-8.2); TRIGLYCERIDES LEVEL 173 MG/DL (<150)
[2023-12-02 17:53] LABS: CREATININE, URINE 163.5 MG/DL
[2023-12-02 17:54] LABS: MAU/CREAT RATIO 3.6 MCG/MG (0.0-30.0)
== END ==
LOC: M PLALAB 12:25
PROVIDERS: ATTEND Nurse Practitioner Adult Health
DX: E11.65 Type 2 diabetes mellitus with hyperglycemia (principal); E78.1 Pure hyperglyceridemia; Z12.5 Encounter for screening for malignant neoplasm of prostate

== ENCOUNTER → 2025-01-19 | Outpatient (CLI) | payer MEDICARE, OTHER ==
[~2025-01-19] MED LIST changes: +GABA-1172 PO; -GABA-282 PO; -RAMI1CAP22 PO; +RAMI2.5C42 PO
[2025-01-19 15:06] LABS: ALBUMIN 3.6 G/DL (3.2-5.2); BILIRUBIN,TOTAL 0.6 MG/DL (0.3-1.2); CALCIUM LEVEL 9.2 MG/DL (8.3-10.6); CHOLESTEROL RISK RATIO 5.23 (<5); CREATININE FOR GFR 1.01 MG/DL (0.70-1.30); GLOMERULAR FILTRATION RATE 82.5 (>49); HDL CHOLESTEROL 23.5 MG/DL (>40); LDL CHOLESTEROL 57.1 MG/DL (<100); NON-HDL-C 99.5 MG/DL; POTASSIUM SERUM 4.7 MMOL/L (3.5-5.1); TOTAL PROTEIN 6.5 G/DL (5.7-8.2)
== END ==
LOC: M RAD 13:35
PROVIDERS: ATTEND Nurse Practitioner Adult Health
DX: R05.9 Cough, unspecified (principal); E11.65 Type 2 diabetes mellitus with hyperglycemia; E78.1 Pure hyperglyceridemia

== ENCOUNTER → 2025-02-09 | Outpatient (CLI) | payer MEDICARE ==
[2025-02-09 12:14] LABS: HEMATOCRIT 48.5 % (42.0-52.0); HEMOGLOBIN 16.4 g/dl (13.5-17.5); MEAN CORPUSCULAR HEMOGLOBIN 30.4 pg (27.0-33.0); MEAN CORPUSCULAR HGB CONC 33.8 g/dl (32.0-36.5); PLATELET COUNT, AUTOMATED 220 10^3/uL (150-450); RED BLOOD COUNT 5.39 10^6/uL (4.30-6.10); WHITE BLOOD COUNT 9.8 10^3/uL (4.0-10.0)
[2025-02-09 12:32] LABS: INR 0.99; PROTHROMBIN TIME 13.4 SECONDS (12.5-14.5)
[2025-02-09 12:36] LABS: BILIRUBIN,TOTAL 1.2 MG/DL (0.3-1.2); CALCIUM LEVEL 9.9 MG/DL (8.3-10.6); CREATININE FOR GFR 1.06 MG/DL (0.70-1.30); GLOMERULAR FILTRATION RATE 77.9 (>49); POTASSIUM SERUM 4.7 MMOL/L (3.5-5.1); TOTAL PROTEIN 6.8 G/DL (5.7-8.2)
== END ==
LOC: M LAB 11:35
PROVIDERS: ATTEND Urology
DX: N52.9 Male erectile dysfunction, unspecified (principal)

== ENCOUNTER → 2025-03-28 | Day surgery (SDC) | payer MEDICARE ==
[~2025-03-28] VITALS: Ht 200.7 cm; Wt 119.7 kg
[~2025-03-28] MED LIST changes: +DEXTROSE 50% 50 ML SYRINGE IV PRN; +DULA3PEN PO; +GENTAMICIN 100 MG in D5W 50 ML IV ONE; +GENTAMICIN 150 MG in D5W 50 ML IV ONE; +GLUCAGON INJ 1 MG VIAL SC PRN; +GLUCOSE 4 GM CHEW PO PRN; +INSULIN LISPRO (NovoLOG) PER UNIT SC PRN; +LIDOCAINE 2% 100 MG/5 ML SDV (FOR ANES.) As Ordered ONE; +LISI2.5T9 PO; +LR 1,000 ML IV SCH; +MIDAZOLAM INJ 2 MG/2 ML VIAL As Ordered ONE; +ONDANSETRON 4MG 2ML VIAL As Ordered ONE; +ROCURONIUM BROMIDE 50MG/5ML VIAL As Ordered ONE; +VANCOMYCIN HCL 1,000 MG, VIAL MATE ADAPTER 1 EACH in NS 250 ML IV ONE; +dexAMETHasone 4 MG/ML 1 ML VIAL As Ordered ONE
[2025-03-28 07:43] VITALS: BP 153/84; TEMP 97.2; O2SAT 95
[2025-03-28] MEDS: INSULIN LISPRO (NovoLOG) PER UNIT SC PRN (08:35)
== END | disposition home or self-care (01) ==
LOC: M SDC 07:41
PROVIDERS: ATTEND Urology
DX: N52.9 Male erectile dysfunction, unspecified (principal); Z53.09 Procedure and treatment not carried out because of other contraindication

== ENCOUNTER → 2025-04-26 | Outpatient (CLI) | payer MEDICARE ==
[~2025-04-26] MED LIST changes: -DEXTROSE 50% 50 ML SYRINGE IV PRN; -GENTAMICIN 100 MG in D5W 50 ML IV ONE; -GENTAMICIN 150 MG in D5W 50 ML IV ONE; -GLUCAGON INJ 1 MG VIAL SC PRN; -GLUCOSE 4 GM CHEW PO PRN; -INSULIN LISPRO (NovoLOG) PER UNIT SC PRN; -LIDOCAINE 2% 100 MG/5 ML SDV (FOR ANES.) As Ordered ONE; -LR 1,000 ML IV SCH; -MIDAZOLAM INJ 2 MG/2 ML VIAL As Ordered ONE; -ONDANSETRON 4MG 2ML VIAL As Ordered ONE; -ROCURONIUM BROMIDE 50MG/5ML VIAL As Ordered ONE; -VANCOMYCIN HCL 1,000 MG, VIAL MATE ADAPTER 1 EACH in NS 250 ML IV ONE; -dexAMETHasone 4 MG/ML 1 ML VIAL As Ordered ONE
[2025-04-26 17:23] LABS: PLATELET COUNT, AUTOMATED 265 10^3/uL (150-450)
[2025-04-26 17:33] LABS: INR 1.05
[2025-04-26 17:41] LABS: ESTIMATED AVERAGE GLUCOSE 148.0 MG/DL (60-110)
[2025-04-26 17:51] LABS: CREATININE, URINE 87.9 MG/DL; MALB URINE SIEMENS 3.0 MG/L
[2025-04-26 17:52] LABS: ALT/SGPT 29.0 U/L (7.0-40); AST/SGOT 21.0 U/L (<34); CALCIUM LEVEL 9.6 MG/DL (8.3-10.6); CARBON DIOXIDE LEVEL 24.0 MMOL/L (20-31); CHLORIDE LEVEL 104.0 MMOL/L (98-107); CREATININE FOR GFR 1.16 MG/DL (0.70-1.30); GLOMERULAR FILTRATION RATE 69.5 (>49); POTASSIUM SERUM 4.5 MMOL/L (3.5-5.1); SODIUM LEVEL 142.0 MMOL/L (136-145)
[2025-04-26 22:50] LABS: MAU/CREAT RATIO 34.1 MCG/MG (0.0-30.0)
== END ==
LOC: M LAB 16:47
PROVIDERS: ATTEND Nurse Practitioner Adult Health
DX: N52.9 Male erectile dysfunction, unspecified (principal); E11.65 Type 2 diabetes mellitus with hyperglycemia; Z79.01 Long term (current) use of anticoagulants

== ENCOUNTER 2025-05-30 08:18 | Day surgery (SDC) | payer MEDICARE ==
[~2025-05-30] VITALS: Ht 200.7 cm; Wt 119.9 kg
[~2025-05-30 08:18] MED LIST changes: -IBUP-1022 PO; +IBUP600T42 PO; +LIDOCAINE 2% 100 MG/5 ML SDV (FOR ANES.) As Ordered ONE
[2025-05-30 09:08] VITALS: TEMP 97.8
[2025-05-30 09:25] VITALS: BP 137/75; O2SAT 97
== END 2025-05-30 09:37 | disposition home or self-care (01) ==
LOC: M OPP 08:18
PROVIDERS: ATTEND Internal Medicine Gastroenterology
DX: Z12.11 Encounter for screening for malignant neoplasm of colon (principal); Z86.0100 Personal history of colon polyps, unspecified; G47.30 Sleep apnea, unspecified; Z79.82 Long term (current) use of aspirin; Z79.84 Long term (current) use of oral hypoglycemic drugs; Z79.4 Long term (current) use of insulin; Z79.899 Other long term (current) drug therapy

== ENCOUNTER 2025-07-20 09:29 | Day surgery (SDC) | payer MEDICARE ==
[~2025-07-20] VITALS: Ht 200.7 cm; Wt 120.8 kg
[~2025-07-20 09:29] MED LIST changes: -LIDOCAINE 2% 100 MG/5 ML SDV (FOR ANES.) As Ordered ONE
[2025-07-20] MEDS ORDERED: LIDOCAINE 2% 100 MG/5 ML SDV (FOR ANES.) As Ordered ONE (10:25)
[2025-07-20] MEDS ORDERED: GLUCAGON INJ 1 MG VIAL As Ordered ONE (11:35)
[2025-07-20 11:49] VITALS: TEMP 97.8
[2025-07-20 12:13] VITALS: BP 121/73; O2SAT 97
== END 2025-07-20 12:17 | disposition home or self-care (01) ==
LOC: M SDC 09:29
PROVIDERS: ATTEND Internal Medicine Gastroenterology
DX: D12.5 Benign neoplasm of sigmoid colon (principal); D12.2 Benign neoplasm of ascending colon; D12.3 Benign neoplasm of transverse colon; I10 Essential (primary) hypertension; E78.5 Hyperlipidemia, unspecified; E11.9 Type 2 diabetes mellitus without complications; G47.33 Obstructive sleep apnea (adult) (pediatric); Z79.899 Other long term (current) drug therapy; Z79.84 Long term (current) use of oral hypoglycemic drugs; Z79.82 Long term (current) use of aspirin
CPT/HCPCS: 45385; 88305; J1610